=== PATIENT | female | born 1945 | race Native Hawaiian/Other Pacific Islander ===

== ENCOUNTER 2021-07-09 13:20 | Outpatient (CLI) | payer OTHER | END 2021-07-09 19:13 | disposition home or self-care (01) | LOC: RAD 13:20 | PROVIDERS: ATTEND Nurse Practitioner Family | DX: M25.551 Pain in right hip (principal) ==

== ENCOUNTER 2021-11-05 14:28 | Outpatient (CLI) | payer OTHER | END 2021-11-05 19:10 | disposition home or self-care (01) | LOC: RAD 14:28 | PROVIDERS: ATTEND Orthopaedic Surgery | DX: M25.551 Pain in right hip (principal) ==